=== PATIENT | female | born 1930 | race Two or more races ===

== ENCOUNTER → 2016-07-30 | Outpatient (CLI) | payer MEDICARE, OTHER ==
[2016-07-30 12:03] LABS: Basophils # (auto) 0 uL; Basophils % (auto) 0.4 % (0.0-2.0); Eosinophils # (auto) 0.1 uL; Eosinophils % (auto) 0.7 % (0.0-7.0); Hematocrit 37.8 % (36.0-46.0); Hemoglobin 11.6 g/dL (12.2-16.2); Lymphocytes # (auto) 1.4 uL; Lymphocytes % (auto) 19.4 % (10.0-50.0); Mean Corpuscular Hemoglobin 30.7 pg (28.0-32.0); Mean Corpuscular Hgb Conc. 30.7 g/dL (32.0-36.0); Mean Platelet Volume 8.9 fL (7.4-10.4); Monocytes # (auto) 0.7 uL; Monocytes % (auto) 9.4 % (0.0-12.0); Neutrophils # (auto) 5.2 uL; Neutrophils % (auto) 70.1 % (37.0-80.0); Platelet Count (auto) 228 10^3/uL (140-450); Red Cell Distribution Width 13.8 % (11.6-16.0); Urine Bilirubin Negative (Negative); Urine Blood Negative /uL (Negative); Urine Color Yellow (Yellow); Urine Glucose Normal (Normal); Urine Ketone Negative (Negative); Urine Nitrite Negative (Negative); Urine Urobilinogen Normal (Negative); Urine pH 5.5 (5.0-8.0); White Blood Cell 7.4 10^3/uL (4.4-10.8)
[2016-07-30 12:24] LABS: Potassium 4.7 mmol/L (3.5-5.1)
== END | disposition home or self-care (01) ==
LOC: LAB 10:14
PROVIDERS: ATTEND Internal Medicine Cardiovascular Disease
DX: I10 Essential (primary) hypertension (principal); D64.9 Anemia, unspecified; N39.0 Urinary tract infection, site not specified
CPT/HCPCS: 36415; 80048; 81003; 85025

== ENCOUNTER → 2016-09-06 | Outpatient (CLI) | payer MEDICARE, OTHER ==
[~2016-09-06] MED LIST: AML5T PO; ASPI-306 PO; ATOR20TA50 PO; DONE10TA37 PO; FURO20TA3 PO; LEV50T PO; MEGE40TA15 PO; SPIR25TA89 PO; TRAV0.00 EACHEYE
[2016-09-06 12:10] LABS: Urine Bilirubin Negative (Negative); Urine Blood Negative /uL (Negative); Urine Color Yellow (Yellow); Urine Glucose Normal (Normal); Urine Ketone Negative (Negative); Urine Nitrite Negative (Negative); Urine pH 5.5 (5.0-8.0)
== END | disposition home or self-care (01) ==
LOC: LAB 10:22
PROVIDERS: ATTEND Internal Medicine Cardiovascular Disease
DX: E03.9 Hypothyroidism, unspecified (principal); N39.0 Urinary tract infection, site not specified
CPT/HCPCS: 36415; 81003; 84439; 84443; 87086

== ENCOUNTER → 2016-09-15 | Outpatient (CLI) | payer MEDICARE, OTHER ==
[2016-09-15 14:00] VITALS: BP 133/60
[2016-09-15 14:30] VITALS: BP 147/50
== END | disposition home or self-care (01) ==
LOC: Rad HDHVI 12:50
PROVIDERS: ATTEND Internal Medicine Cardiovascular Disease
DX: I10 Essential (primary) hypertension (principal); I34.0 Nonrheumatic mitral (valve) insufficiency; I48.91 Unspecified atrial fibrillation; J44.9 Chronic obstructive pulmonary disease, unspecified; F41.9 Anxiety disorder, unspecified; R53.1 Weakness
CPT/HCPCS: 78472; 93306; 96372; 96374; A9505; G0463; 96375

== ENCOUNTER 2016-10-24 11:39 | Emergency (ER) | payer MEDICARE ==
[~2016-10-24] VITALS: Ht 160 cm; Wt 44.5 kg
[2016-10-24 11:55] VITALS: BP 141/56
[2016-10-24] MEDS ORDERED: ACETAMINOPHEN 500 MG TAB PO ONE (12:45)
== END 2016-10-24 14:17 | disposition home or self-care (01) ==
LOC: ER 11:39
DX: S50.12XA Contusion of left forearm, initial encounter (principal); F03.90 Unspecified dementia, unspecified severity, without behavioral disturbance, psychotic disturbance, mood disturbance, and anxiety; I48.91 Unspecified atrial fibrillation; I11.0 Hypertensive heart disease with heart failure; I50.9 Heart failure, unspecified; Z79.82 Long term (current) use of aspirin; Z79.899 Other long term (current) drug therapy; W07.XXXA Fall from chair, initial encounter; Y93.89 Activity, other specified; Y99.8 Other external cause status; Y92.89 Other specified places as the place of occurrence of the external cause
CPT/HCPCS: 73090